=== PATIENT | male | born 1965 | race Caucasian/White ===

== ENCOUNTER 2016-12-06 11:50 | Emergency (ER) | payer OTHER ==
[~2016-12-06] VITALS: Ht 172.7 cm; Wt 100.0 kg
[2016-12-06 11:57] VITALS: Ht 172.7 cm; Wt 100.0 kg
[2016-12-06] MEDS ORDERED: IBUP800T25 PO (13:12)
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
== END 2016-12-06 14:39 | disposition home or self-care (01) ==
LOC: FTE 11:50
DX: S13.4XXA Sprain of ligaments of cervical spine, initial encounter (principal); V49.49XA Driver injured in collision with other motor vehicles in traffic accident, initial encounter
CPT/HCPCS: 99283